=== PATIENT | female | born 1950 | race Two or more races ===

== ENCOUNTER 2019-06-11 17:06 | Inpatient (IN) | payer BC, MEDICARE ==
[~2019-06-11] VITALS: Ht 160 cm; Wt 77.1 kg
--- NOTE | 2019-06-11 18:55 | NUR ---
MS RN RECEIVING NOTES: RECEIVED PATIENT, DIRECT ADMIT FROM [facility]. UPON ADMISSION PATIENT IN MEDICALLY STABLE CONDITION, A/O X4. PATIENT IS ON ROOM AIR SATURATING WELL. MILD PAIN 2/10 IS REPORTED BY PATIENT BUT SHE REFUSES ANY MEDICATIONS RIGHT NOW. VITAL SIGNS WNL. RAC GAUGE # 20. PATIENT AMBULATORY AND ABLE TO MAKE HER NEEDS KNOWN. WILL ENDORSE TO GROOVING LATHE TENDER NURSE.
--- NOTE | 2019-06-11 19:05 | NUR ---
MS RN NOTES RECEIVED PT IN BED AWAKE AND ABLE TO MAKE NEEDS KNOWN. PT A/O X3. RESPIRATIONS EVEN AND UNLABORED WITH NO S/S OF ACUTE DISTRESS OR SOB NOTED. NO COMPLAINTS OF PAIN AT THIS TIME. PT NOTED WITH RAC #20G PATENT AND INTACT AND SL. AWAITING ADMITTING ORDERS. SAFETY MEASURES IN PLACE WITH BED IN LOWEST LOCKED POSITIONS WITH SIDE RAILS UP X2. CALL LIGHT WITHIN REACH. WILL CONTINUE TO MONITOR.
[2019-06-11] MEDS ORDERED: ESCI10TA PO (19:13)
[2019-06-11 19:30] VITALS: BP 158/93
--- NOTE | 2019-06-11 19:30 | NUR ---
MS RN NOTES PT NOTED WITH MONEY AND CREDIT CARDS AT BEDSIDE. PT REFUSED TO HAVE THEM LOCKED UP. WILL CONTINUE TO MONITOR.
[2019-06-11] MEDS ORDERED: Z GUARD REMEDY 2 OZ OINT TP PRN (20:30)
[2019-06-11] MEDS ORDERED: ACETAMINOPHEN 325 MG TABLET PO PRN (20:30)
[2019-06-11] MEDS ORDERED: MAG HYDROX/AL HYDROX/SIMETH 30 ML UDC PO PRN (20:30)
[2019-06-11] MEDS ORDERED: ONDANSETRON HCL/PF 4 MG/2 ML VIAL IVP PRN (20:30)
[2019-06-11] MEDS ORDERED: MAGNESIUM HYDROXIDE 30 ML UDC PO PRN (20:30)
[2019-06-11] MEDS ORDERED: HYDROCODONE/APAP 5/325MG 1 EACH TABLET PO PRN (20:30)
[2019-06-11] MEDS ORDERED: MORPHINE SULFATE INJ 2 MG/ML DISP.SYRIN IV PRN (20:30)
[2019-06-11] MEDS: ZOLPIDEM TARTRATE 5 MG TABLET PO PRN (23:54)
--- NOTE | 2019-06-12 06:59 | NUR ---
MS RN NOTES LINES TENDER UNABLE TO GET BLOOD DRAW. LAB WILL SEND ANOTHER TECH TO REDRAW THE BLOOD. WILL CONTINUE TO MONITOR.
--- NOTE | 2019-06-12 07:20 | NUR ---
M/S RN NOTES PATIENT AWAKE IN BED, ALERT AND ORIENTED X4, NO RESPIRATORY DISTRESS, PAIN TOLERABLE AT THIS TIME WITH PAIN LEVEL OF 2/10. NO N/V, PATIENT'S IV ACCESS SITE ON THE RAC #20G, INTACT AND PATENT. SKIN WARM TO TOUCH, PATIENT'S NEEDS ATTENDED, BED ON LOWEST LOCKED POSITION, CALL LIGHT WITHIN REACH. WILL CONTINUE TO MONITOR.
--- NOTE | 2019-06-12 07:32 | NUR ---
MS RN NOTES PT IN BED AWAKE AND ABLE TO MAKE NEEDS KNOWN. PT A/O X3. RESPIRATIONS EVEN AND UNLABORED WITH NO S/S OF ACUTE DISTRESS OR SOB NOTED THROUGHOUT SHIFT. NO COMPLAINTS OF PAIN AT THIS TIME. PT NOTED WITH RAC #20G PATENT AND INTACT AND SL. AWAITING ADMITTING ORDERS. SAFETY MEASURES IN PLACE WITH BED IN LOWEST LOCKED POSITIONS WITH SIDE RAILS UP X2. CALL LIGHT WITHIN REACH. WILL ENDORSE TO ONCOMING NURSE FOR TONIE.
[2019-06-12 08:00] VITALS: BP 121/98
[2019-06-12] MEDS: ESCITALOPRAM OXALATE (10 MG) 10 MG TABLET PO SCH (08:13)
[2019-06-12 08:14] LABS: CALCIUM, SERUM 8.6 mg/dL (8.5-10.1); CREATININE 0.9 mg/dL (0.6-1.3); MAGNESIUM 1.9 mg/dL (1.8-2.4); PHOSPHORUS 3.6 mg/dL (2.5-4.9); POTASSIUM 3.8 mmol/L (3.5-5.1)
[2019-06-12 08:16] LABS: BASOPHILS % (AUTO) 0.7 % (0.0-2.0); EOSINOPHILS % (AUTO) 1.1 % (0.0-6.0); HEMATOCRIT 41 % (33-45); HEMOGLOBIN 13.8 g/dL (11.5-14.8); LYMPHOCYTES % (AUTO) 23.9 % (20.0-44.0); MEAN CORPUSCULAR HGB CONC 34 g/dl (31.0-36.0); MEAN CORPUSCULAR VOLUME 89 fL (82-100); MONOCYTES # (AUTO) 0.3 /CMM (0.1-1.30); MONOCYTES % (AUTO) 7.7 % (2.0-12.0); NEUTROPHILS # (AUTO) 2.8 /CMM (1.8-8.9); NEUTROPHILS % (AUTO) 66.6 % (43.0-81.0); PLATELET COUNT (AUTO) 105 /CMM (150-450); RED BLOOD CELL COUNT(AUTO) 4.61 MIL/uL (4.0-5.2); WHITE BLOOD COUNT (AUTO) 4.2 K/uL (4.3-11.0)
[2019-06-12] MEDS ORDERED: IV D5/ 0.9% NACL 1,000 ML IV PRN (08:30)
[2019-06-12 09:14] LABS: ALBUMIN 3.3 g/dL (3.4-5.0); BILIRUBIN,DIRECT 0.2 mg/dL (0.0-0.2); BILIRUBIN,TOTAL 1.1 mg/dL (0.2-1.0); TOTAL PROTEIN, SERUM 6.2 g/dL (6.4-8.2)
[2019-06-12] MEDS ORDERED: LORAZEPAM INJ 2 MG/ML VIAL IV ONE (09:30)
--- NOTE | 2019-06-12 12:07 | NUR ---
M/S RN NOTES PER MD PATIENT CAN BE ON CLEAR LIQUIDS AND ADVANCE DIET TOLERATED.
[2019-06-12] MEDS ORDERED: IV NS 0.9% 1,000 ML IV PRN (13:00)
[2019-06-12 16:00] VITALS: BP 136/73
--- NOTE | 2019-06-12 19:00 | NUR ---
M/S RN NOTES PATIENT AWAKE IN BED, AT BEDSIDE. NO RESPIRATORY DISTRESS, NO N/V, NO /CO PAIN AT THIS TIME. SKIN WARM TO TOUCH, IV ON THE RAC #20G INTACT AND PATENT, IV NS INFUSING AT 75ML/HR. PATIENT'S NEEDS ATTENDED, BED ON LOWEST LOCKED POSITION, CALL LIGHT WITHIN REACH. WILL ENDORSE TO ONCOMING NURSE.
--- NOTE | 2019-06-12 19:30 | NUR ---
RN Notes Patient awake, alert and oriented x4, on room air and tolerated well. Denies any pain and discomfort at this time. Current diet tolerated well, denies nausea and vomiting. IV access on right AC patent and intact with ongoing IVF infusing well. Ileostomy intact, working well. Plan of care discussed with the patient and at bedside and verbalized understanding. Kept comfortable and attended. Will continue to monitor.
[2019-06-12 20:26] VITALS: BP 146/80
[2019-06-12] MEDS: ZOLPIDEM TARTRATE 5 MG TABLET PO PRN (21:44)
--- NOTE | 2019-06-12 21:44 | NUR ---
RN Notes Patient verbalized difficulty in sleeping, Ambien 5 mg tab given. Told patient to call if she will get out of bed and go to the bathroom to be assisted because ambien can cause dizziness and drowsiness and verbalized understanding.Patient refused to continue the IVF because she keeps on going to the bathroom. Will continue to monitor.
[2019-06-12 22:00] VITALS: BP 146/80
--- NOTE | 2019-06-13 07:20 | NUR ---
MS RN NOTES RECEIVED PATIENT AMBULATING IN HALLWAY. NO SOB. DENIES ANY C/O PAIN NOR DISCOMFORT AT THIS TIME. PATIENT REFUSED TO BE CONNECTED TO IVF ORDERED DESPITE OF EXPLANATIONS PROVIDED. PER PATIENT, "I EAT AND DRINK, I DON'T NEED IT." BED IN LOWEST POSITION, LOCKED. CALL LIGHT WITHIN REACH.
--- NOTE | 2019-06-13 07:33 | NUR ---
RN Notes Patient sleep well overnight, vital signs stable, afebrile. Denies any pain and discomfort. Current diet tolerated well, denies nausea and vomiting.Voiding well, ileostomy working. All needs met. Will endorse accordingly.
[2019-06-13 07:54] LABS: BASOPHILS % (AUTO) 0.8 % (0.0-2.0); EOSINOPHILS % (AUTO) 1.6 % (0.0-6.0); HEMATOCRIT 43 % (33-45); HEMOGLOBIN 14.3 g/dL (11.5-14.8); LYMPHOCYTES # (AUTO) 1.3 /CMM (0.8-4.8); LYMPHOCYTES % (AUTO) 24.5 % (20.0-44.0); MEAN CORPUSCULAR HGB CONC 33 g/dl (31.0-36.0); MEAN CORPUSCULAR VOLUME 89 fL (82-100); MONOCYTES # (AUTO) 0.4 /CMM (0.1-1.30); MONOCYTES % (AUTO) 8.1 % (2.0-12.0); NEUTROPHILS # (AUTO) 3.3 /CMM (1.8-8.9); PLATELET COUNT (AUTO) 112 /CMM (150-450); RED BLOOD CELL COUNT(AUTO) 4.84 MIL/uL (4.0-5.2); WHITE BLOOD COUNT (AUTO) 5.1 K/uL (4.3-11.0)
[2019-06-13 08:00] VITALS: BP 136/72
[2019-06-13 08:06] LABS: CALCIUM, SERUM 8.7 mg/dL (8.5-10.1); CREATININE 0.8 mg/dL (0.6-1.3); POTASSIUM 4.1 mmol/L (3.5-5.1)
[2019-06-13] MEDS: ESCITALOPRAM OXALATE (10 MG) 10 MG TABLET PO SCH (08:23)
--- NOTE | 2019-06-13 11:20 | NUR ---
MS RN NOTES PATIENT FOR DISCHARGE, DISCHARGE INSTRUCTION AND PACKET GIVEN TO PATIENT. PER PATIENT SHE DOES NOT WANT THE SMOKING CESSATION EDUCATION BECAUSE SHE DOESN'T SMOKE DESPITE OF EXPLANATIONS GIVEN. PATIENT ALSO STATED SHE HAS A HISTORY OF LEFT SHOULDER TOTAL REPLACEMENT. NO SOB. DENIES ANY C/O PAIN NOR DISCOMFORT. IV ACCESS REMOVED WITH CATHETER TIP INTACT WITH GAUZE DRESSING IN PLACE. ALL BELONGINGS ACCOUNTED FOR. PATIENT PICKED UP BY FAMILY AND LEFT IN STABLE CONDITION VIA PRIVATE CAR.
== END 2019-06-13 12:00 | disposition home or self-care (01) | DRG 439 ==
LOC: MED 18:53
PROVIDERS: ADMIT Family Medicine; ATTEND Nurse Practitioner Acute Care
DX: K85.10 Biliary acute pancreatitis without necrosis or infection (principal); K50.90 Crohn's disease, unspecified, without complications; F43.10 Post-traumatic stress disorder, unspecified; F32.9 Major depressive disorder, single episode, unspecified; I10 Essential (primary) hypertension; Z90.49 Acquired absence of other specified parts of digestive tract; Z96.643 Presence of artificial hip joint, bilateral; Z93.2 Ileostomy status; F41.9 Anxiety disorder, unspecified; M19.90 Unspecified osteoarthritis, unspecified site
CPT/HCPCS: 36415; 74181-TC; 80048-TC; 80061-TC; 80076-TC; 83690-TC; 83735-TC; 84100-TC; 85025-TC; 87081-TC; G0378; J2060; J7030; J7042